=== PATIENT | female | born 1995 | race Caucasian/White ===

== ENCOUNTER 2021-11-11 14:42 | Emergency (ER) | payer OTHER ==
[2021-11-11 14:49] VITALS: BP 123/86; PULSE 65; TEMP 98.4; BMI 32.2
[2021-11-11] MEDS ORDERED: hydrOXYzine PAMOATE 25 MG CAPSULE (FP) PO ONE ×3 (16:20→16:29)
== END 2021-11-11 16:37 | disposition home or self-care (01) ==
LOC: JER 14:42
DX: F41.9 Anxiety disorder, unspecified (principal)
CPT/HCPCS: 99283-25

== ENCOUNTER 2022-10-01 05:49 | Day surgery (SDC) | payer OTHER ==
[~2022-10-01 05:49] MED LIST: BUPIVACAINE HCL/PF 0.5% (5MG/ML) 10 ML VIAL IJ ONE
[2022-10-01 05:58] VITALS: BMI 34.3
[2022-10-01] MEDS ORDERED: LACTATED RINGERS SOLUTION 1000 ML INFUS.BAG IV ONE (06:09)
[2022-10-01] MEDS ORDERED: ONDANSETRON 4 MG/2 ML VIAL IVPUSH ONE (06:09)
[2022-10-01] MEDS ORDERED: ACETAMINOPHEN 1000 MG/100 ML BAG IVPB ONE (06:09)
[2022-10-01] MEDS ORDERED: ONDANSETRON 4 MG/2 ML VIAL ONE ×2 (06:28→13:59)
[2022-10-01] MEDS ORDERED: ACETAMINOPHEN INJECTION 100 ML IVPB ONE ×2 (06:28→16:24)
[2022-10-01 06:54] LABS: BASO % 0.3 % (0-2.0); EOS % 0.1 % (0-4.5); HEMATOCRIT 43.1 % (32.4-45.2); HEMOGLOBIN 15.3 GM/dL (10.7-15.3); LYMPH % 7.9 % (8-40); MCH 31.4 pg (25.7-33.7); MCHC 35.6 g/dl (32.0-36.0); MEAN CELL VOLUME 88.3 fl (80-96); MEAN PLT VOLUME 8.3 fl (7.5-11.1); MONO % 3.7 % (3.8-10.2); PLATELET COUNT 284 10^3/uL (134-434); RBC 4.88 M/mm3 (3.60-5.2); RDW 13.1 % (11.6-15.6); WHITE BLOOD COUNT 19.8 K/mm3 (4.0-10.0)
[2022-10-01] MEDS ORDERED: FAMOTIDINE 20 MG/50 ML IVPB 20 MG/50 ML MG IVPB ONE ×2 (07:26→07:59)
[2022-10-01] MEDS ORDERED: MAG HYDROX/AL HYDROX/SIMETH 30 ML UNIT-DOSE CUP PO ONE (07:26)
[2022-10-01] MEDS ORDERED: MAG HYDROX/AL HYDROX/SIMETH 30 ML UNIT-DOSE CUP ONE (07:58)
[2022-10-01] MEDS ORDERED: METOCLOPRAMIDE HCL INJECTION 10 MG/2 ML VIAL IVPB ONE (08:31)
[2022-10-01 08:32] LABS: POTASSIUM 3.9 mmol/L (3.5-5.1)
[2022-10-01] MEDS ORDERED: METOCLOPRAMIDE HCL INJECTION 10 MG/2 ML VIAL ONE (08:32)
[2022-10-01 08:34] LABS: CALCIUM 9.6 mg/dL (8.5-10.1)
[2022-10-01 08:35] LABS: ALBUMIN 4.4 g/dl (3.4-5.0)
[2022-10-01 08:38] LABS: CREATININE 0.7 mg/dL (0.55-1.3)
[2022-10-01 08:39] LABS: BILIRUBIN,TOTAL 0.8 mg/dL (0.2-1)
[2022-10-01 08:40] LABS: TOT PROT 8.6 g/dl (6.4-8.2)
[2022-10-01] MEDS ORDERED: morphine CARPU-JECT 4 MG/1 ML DISP.SYRIN IVPUSH ONE (08:52)
[2022-10-01 09:18] LABS: PH,URINE 7.5 (5.0-8.0); URINE APPEARANCE CLOUDY; URINE BILIRUBIN NEGATIVE (NEGATIVE); URINE COLOR YELLOW; URINE GLUCOSE (UA) NEGATIVE (NEGATIVE); URINE KETONE 2+ (NEGATIVE); URINE LEUK ESTERASE NEGATIVE (NEGATIVE); URINE NITRITE NEGATIVE (NEGATIVE); URINE PROTEIN TRACE (NEGATIVE)
[2022-10-01] MEDS ORDERED: PIPERACILLIN/TAZOB 3.375 GM 3.375 GM in DEXTROSE 5%-WATER - 50 ML IVPB ONE (09:49)
[2022-10-01] MEDS ORDERED: SODIUM CHLORIDE 0.9% 500 ML INFUS.BAG IV ONE (09:49)
[2022-10-01] MEDS ORDERED: morphine SULFATE 4 MG/ML VIAL ONE (10:22)
[2022-10-01] MEDS ORDERED: PIPERACILLIN/TAZOB 3.375 GM 3.375 GM/50 ML BAG IVPB ONE ×2 (10:23→10:24)
[2022-10-01] MEDS ORDERED: LACTATED RINGERS SOLUTION 1,000 ML/1,000 ML INFUS.BAG IV SCH (10:30)
[2022-10-01 10:38] LABS: INR 1.09 (0.83-1.09); PROTHROMBIN TIME (PATIENT) 12.6 SEC (9.7-13.0)
[2022-10-01 10:40] LABS: ACTIVATED PTT 34.2 SECONDS (25.2-36.5)
[2022-10-01] MEDS ORDERED: ONDANSETRON 4 MG/2 ML VIAL IVPUSH PRN ×2 (10:48→16:00)
[2022-10-01] MEDS ORDERED: ACETAMINOPHEN 1000 MG/100 ML BAG IVPB PRN (10:54)
[2022-10-01] MEDS ORDERED: BUPIVACAINE HCL/PF 0.5% (5MG/ML) 10 ML VIAL ONE (11:28)
[2022-10-01] MEDS ORDERED: morphine SULFATE 4 MG/ML VIAL IVPUSH PRN (12:04)
[2022-10-01] MEDS ORDERED: oxyCODONE HCL 5 MG TABLET PO PRN ×3 (13:52→15:54)
[2022-10-01] MEDS ORDERED: PROMETHAZINE HCL 25 MG/1 ML VIAL IVPB PRN (13:52)
[2022-10-01] MEDS ORDERED: MIDAZOLAM HCL 2 MG/2 ML SINGLE DOSE VIAL ONE (13:58)
[2022-10-01] MEDS ORDERED: PROPOFOL 20 ML ONE (13:58)
[2022-10-01] MEDS ORDERED: DEXAMETHASONE SOD PHOSPHATE 4 MG/1 ML VIAL ONE (13:59)
[2022-10-01] MEDS ORDERED: LIDOCAINE HCL/PF 2% SDV 5ML VIAL ONE (13:59)
[2022-10-01] MEDS ORDERED: KETOROLAC TROMETHAMINE 30 MG/1 ML VIAL ONE (13:59)
[2022-10-01] MEDS ORDERED: ROCURONIUM BROMIDE 50 MG/5 ML SYRINGE ONE (13:59)
[2022-10-01] MEDS ORDERED: LACTATED RINGERS SOLUTION 1,000 ML IV SCH ×2 (14:00→16:00)
[2022-10-01] MEDS ORDERED: SEVOFLURANE 250 ML BTL ONE (14:19)
[2022-10-01] MEDS ORDERED: BUPIVACAINE HCL/PF 0.5% (5MG/ML) 10 ML VIAL IJ ONE ×2 (14:43)
[2022-10-01] MEDS ORDERED: GLYCOPYRROLATE 0.2 MG/1 ML VIAL ONE ×2 (14:59)
[2022-10-01] MEDS ORDERED: NEOSTIGMINE METHYLSULFATE 0.5 MG/1 ML - 10 ML MDV ONE (14:59)
[2022-10-01] MEDS ORDERED: KETOROLAC TROMETHAMINE 30 MG/1 ML VIAL IVPUSH PRN (15:55)
[2022-10-01] MEDS ORDERED: AMPICILLIN NA/SULBACTAM NA 3 GM in SODIUM CHLORIDE 100 ML IVPB SCH (16:30)
[2022-10-01] MEDS: ACETAMINOPHEN 1000 MG/100 ML BAG IVPB SCH (16:41)
[2022-10-02] MEDS: ACETAMINOPHEN 1000 MG/100 ML BAG IVPB SCH ×3 (00:17→08:45)
[2022-10-02 01:09] VITALS: RESP 18
[2022-10-02 10:39] LABS: BASO % 0.2 % (0-2.0); EOS % 0.3 % (0-4.5); HEMATOCRIT 36.5 % (32.4-45.2); HEMOGLOBIN 12.5 GM/dL (10.7-15.3); LYMPH % 16.6 % (8-40); MCH 30.5 pg (25.7-33.7); MCHC 34.3 g/dl (32.0-36.0); MEAN CELL VOLUME 88.8 fl (80-96); MEAN PLT VOLUME 7.7 fl (7.5-11.1); MONO % 8.8 % (3.8-10.2); NEUT % 74.1 % (42.8-82.8); PLATELET COUNT 260 10^3/uL (134-434); RBC 4.12 M/mm3 (3.60-5.2); RDW 13.3 % (11.6-15.6); WHITE BLOOD COUNT 17.7 K/mm3 (4.0-10.0)
[2022-10-02 11:04] LABS: POTASSIUM 3.4 mmol/L (3.5-5.1)
[2022-10-02 11:06] LABS: CALCIUM 8.6 mg/dL (8.5-10.1)
[2022-10-02 11:07] LABS: BLOOD UREA NITROGEN 13.2 mg/dL (7-18)
[2022-10-02 11:10] LABS: CREATININE 0.8 mg/dL (0.55-1.3); PHOSPHOROUS 2.8 mg/dL (2.5-4.9)
[2022-10-02 11:11] LABS: BILIRUBIN,TOTAL 0.8 mg/dL (0.2-1)
[2022-10-02 11:15] LABS: ALBUMIN 3.1 g/dl (3.4-5.0); TOT PROT 6.5 g/dl (6.4-8.2)
[2022-10-02] MEDS ORDERED: IBUPROFEN 600 MG TABLET (FP) PO PRN (12:07)
[2022-10-02] MEDS ORDERED: ACETAMINOPHEN 500 MG TABLET (FP) PO PRN (12:07)
[2022-10-02 15:28] VITALS: BP 101/68; PULSE 78; TEMP 99.4
== END 2022-10-02 19:23 | disposition home or self-care (01) ==
LOC: JER 05:49 → JERBED 09:50 → UNDOADMOB 09:50 → INTOOBSV 10:47 → OBSVTOIN 10:47 → JERBED 11:37 → UNDOADMOB 11:37 → JERBED 18:02 → J5S 19:59 → JERBED 19:59 → JASUSAT 10-02 11:50 → J5S 10-02 11:59 → JASUSAT 10-02 19:23
PROC: 0DTJ4ZZ Resection of Appendix, Percutaneous Endoscopic Approach (ICD-10-PCS; principal; 2022-10-01 13:30)
DX: K35.80 Unspecified acute appendicitis (principal)
CPT/HCPCS: 0241U-QW; 36415; 74177-TC; 80053; 81003; 83690; 83735; 84100; 84703; 85025; 85610; 85730; 86850; 86900; 86901; 87086; 88304-TC; 93005; 93010; 94760; 99285-25; Q9967